=== PATIENT | female | born 1980 | race Two or more races ===

== ENCOUNTER 2022-01-28 06:33 | Day surgery (SDC) | payer OTHER ==
[~2022-01-28 06:33] MED LIST: ADVAIR; XOP; ZYRTEC10 M3 PO
== END 2022-01-28 12:55 | disposition home or self-care (01) ==
LOC: CIR.AMB 06:33
PROVIDERS: ATTEND Specialist
DX: D17.22 Benign lipomatous neoplasm of skin and subcutaneous tissue of left arm (principal); Z20.822 Contact with and (suspected) exposure to COVID-19; Z86.16 Personal history of COVID-19